=== PATIENT | male | born 1980 | race Caucasian/White ===

== ENCOUNTER 2019-04-15 14:17 | Observation (INO) | payer BC ==
[~2019-04-15] VITALS: Ht 190.5 cm; Wt 105.6 kg
[2019-04-15] MEDS ORDERED: LIPITOR 40MG TA40 MG PO (15:20)
[2019-04-15] MEDS ORDERED: ASPIRIN 81M81 MG/TA2 PO (15:20)
[2019-04-15] MEDS ORDERED: OMEGA-3 1000 MG1 CAP PO (15:20)
[2019-04-15 15:21] VITALS: BP 131/69; PULSE 8; TEMP 98.5
[2019-04-15 15:45] VITALS: BP 131/69; PULSE 8; TEMP 98.5
--- NOTE | 2019-04-15 16:08 | NUR ---
Pt to OR at this time with RENA Fraire
[2019-04-15 17:22] VITALS: TEMP 97.8
[2019-04-15 17:30] VITALS: BP 118/75; PULSE 75
--- NOTE | 2019-04-15 17:36 | NUR ---
Pt arrived back to room 324 from PACU. He is awake and A/Ox4. He states his pain is minimal. Pt given cranberry juice and applesauce upon request. Pt updated on plan of care, expressed understanding.
[2019-04-15 17:45] VITALS: BP 124/65; PULSE 82
[2019-04-15 18:13] VITALS: BP 121/65; PULSE 73
--- NOTE | 2019-04-15 19:35 | NUR ---
PT VOIDED, URINE BLOOD TINGED. PT HAS EATEN. HAS FILLED SCRIPTS. 1 PERCOCET ADMIN FOR PAIN. D.C. INSTRUCTIONS GIVEN WITH PAPER COPY TO PT. I.VSandeep Alvarado. PT ESCORTED TO FAMILY VEHICLE VIA W.C.
== END 2019-04-15 20:13 | disposition home or self-care (01) ==
LOC: SURG 14:17
PROVIDERS: ADMIT Urology
DX: N13.2 Hydronephrosis with renal and ureteral calculous obstruction (principal); E78.00 Pure hypercholesterolemia, unspecified; Z79.899 Other long term (current) drug therapy; Z90.49 Acquired absence of other specified parts of digestive tract; G47.33 Obstructive sleep apnea (adult) (pediatric)
CPT/HCPCS: C1769; C2617; G0378; J0690; J1885; J2405; J2704; J3010; J7030; Q9967